=== PATIENT | male | born 1995 | race Hispanic/Latino ===

== ENCOUNTER → 2019-04-05 | Outpatient (CLI) | payer BC | END | disposition home or self-care (01) | LOC: RAH 13:02 | PROVIDERS: ATTEND Family Medicine | DX: S92.811D Other fracture of right foot, subsequent encounter for fracture with routine healing (principal); M85.871 Other specified disorders of bone density and structure, right ankle and foot; X58.XXXD Exposure to other specified factors, subsequent encounter | CPT/HCPCS: 73700 ==